=== PATIENT | female | born 1935 | race Caucasian/White ===

== ENCOUNTER 2022-03-31 23:18 | Inpatient (IN) | payer BC ==
[~2022-03-31] VITALS: Ht 154.9 cm; Wt 65.8 kg
--- NOTE | 2022-03-31 23:30 | NUR ---
COLT 89 FROM [facility] [place] C/O L HIP PAIN S/P TRIP & GLF. 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 -LOC. -KO. PT ON BLOOD THINNERS. EXTERNAL ROTATION AND SHORTENING NOTED TO LLE. A/OX 4. TOLERATING R/A WELL WITH NO RESP DISTRESS. RR EVEN AND NON LABORED. CONNECTED PT TO POX AND MONITOR. SAFETY MEASURES IN PLACE.
--- NOTE | 2022-03-31 23:48 | NUR ---
MAKE UP WORKER AT PT'S BEDSIDE
[2022-04-01] MEDS ORDERED: MORPHINE SULFATE INJ 2 MG/ML DISP.SYRIN IV ONE (00:30)
[2022-04-01] MEDS ORDERED: ONDANSETRON HCL/PF 4 MG/2 ML VIAL IV ONE (00:30)
--- NOTE | 2022-04-01 00:31 | NUR ---
L HAND #20G S/L BLOOD AND COVID ANTIGEN SWAB COLLECTED AND SENT TO LAB
[2022-04-01] MEDS ORDERED: ONDANSETRON HCL/PF 4 MG/2 ML VIAL ONE (00:32)
[2022-04-01] MEDS ORDERED: MORPHINE SULFATE INJ 4 MG/ML DISP.SYRIN ONE ×2 (00:33→02:34)
--- NOTE | 2022-04-01 00:48 | NUR ---
PT REFUSED F/C AT THIS TIME AND VERBALIZED UNDERSTANDING.
[2022-04-01 00:50] LABS: BASOPHILS % (AUTO) 0.5 % (0.0-2.0); EOSINOPHILS % (AUTO) 1.3 % (0.0-6.0); HEMATOCRIT 32 % (33-45); LYMPHOCYTES # (AUTO) 1.3 K/uL (0.8-4.8); LYMPHOCYTES % (AUTO) 14.8 % (20.0-44.0); MEAN CORPUSCULAR HGB CONC 32 g/dl (31.0-36.0); MEAN CORPUSCULAR VOLUME 80 fL (82-100); MONOCYTES # (AUTO) 0.5 K/uL (0.1-1.30); MONOCYTES % (AUTO) 5.9 % (2.0-12.0); NEUTROPHILS # (AUTO) 6.8 K/uL (1.8-8.9); NEUTROPHILS % (AUTO) 77.5 % (43.0-81.0); PLATELET COUNT (AUTO) 306 K/uL (150-450); RED BLOOD CELL COUNT(AUTO) 3.93 MIL/uL (4.0-5.2); WHITE BLOOD COUNT (AUTO) 8.8 K/uL (4.3-11.0)
[2022-04-01 01:01] LABS: CALCIUM, SERUM 8.4 mg/dL (8.5-10.1); CREATININE 1.2 mg/dL (0.6-1.3); POTASSIUM 3.9 mmol/L (3.5-5.1)
--- NOTE | 2022-04-01 02:31 | NUR ---
REPORT GIVEN TO RENU Rousseau RN FOR ROBYN
[2022-04-01] MEDS: MORPHINE SULFATE INJ 4 MG/ML DISP.SYRIN IV PRN ×2 (02:39→07:43)
[2022-04-01] MEDS ORDERED: Z GUARD REMEDY 4 OZ OINT TP PRN (03:00)
--- NOTE | 2022-04-01 03:00 | NUR ---
MS RN ADMITTING NOTE PATIENT WAS ADMITTED AT THE UNIT FROM ER. SHE WAS TRANSPORTED ON THE GURNEY. UPON ADMISSION, VITAL SIGNS WERE TAKEN AND BEING DOCUMENTED BY MARV VIZCAINO. PATIENT IS ON 2 LPM OXYGEN, O2 SAT IS 98%. NO S/S OF SOB OR DISTRESS. SHE IS ALERT AND ORIENTED, AO X 4. PATIENT WAS INTRODUCED WITH THE SURROUNDINGS AND ON HOW TO USE THE CALL LIGHT. IV ACCESS IS AT HER LEFT HAND, #20G, PATENT AND INTACT. SAFETY MEASURES ARE IN PLACE: BED IN LOWEST AND LOCKED POSITION; SIDE RAILS UP X 2; CALL LIGHT IS WITHIN REACH. WILL MONITOR PATIENT THROUGH THE SHIFT.
--- NOTE | 2022-04-01 03:05 | NUR ---
PT TRANSRERRED TO 3W 321-1 VIA ACLS PROTOCOL. VSS. ALL BELONGINGS WITH PT.
[2022-04-01] MEDS ORDERED: MORPHINE SULFATE INJ 4 MG/ML DISP.SYRIN IV PRN (03:30)
[2022-04-01] MEDS: ONDANSETRON HCL/PF 4 MG/2 ML VIAL IVP PRN ×3 (03:38→14:33)
[2022-04-01] MEDS: IV NS 0.9% 1,000 ML IV PRN (03:47)
[2022-04-01] MEDS: ENOXAPARIN SODIUM 30 MG/0.3 ML DISP.SYRIN SQ SCH ×3 (04:00→21:27)
--- NOTE | 2022-04-01 04:49 | NUR ---
MS RN NOTE PATIENT IS ADMITTED DUE TO LEFT HIP FRACTURE. PATIENT IS ON NPO PER MD ORDER. PATIENT ALSO HAS BRUISING ON HER FOREARM AND BACK OF HANDS BILATERAL. LOVENOX 30 MG SUBCUTANEOUS INJECTION MEDICATION WAS HELD.
--- NOTE | 2022-04-01 05:00 | NUR ---
MS RN NOTE PATIENT HAS BEEN FEELING ON AND OFF N/V. THE EMESIS COLOR IS LIGHT PURPLE COLOR. PATIENT STATED THAT HE ATE SOME STRAWBERRIES LAST NIGHT; AND SHE ALSO HAD HISTORY OF ESOPHAGUS EROSION RECENTLY. CHARGE NURSE NOTIFIED. WILL CLOSELY MONITOR PATIENT'S CBC LAB, ESPECIALLY H/H FOR S/S OF ACTIVE BLEEDING.
--- NOTE | 2022-04-01 05:00 | NUR ---
MS RN NOTE RECEIVED LAB COURIER VITO ORDER, THE LOVENOX NEED TO BE GIVEN TO PREVENT DVT.MEDICATION GIVEN TO THE PT PER MD ORDER.
--- NOTE | 2022-04-01 06:56 | NUR ---
MS RN CLOSING NOTE PATIENT IS SLEEPING IN BED. PATIENT IS ON 2 LPM OXYGEN, O2 SAT IS 98%. NO S/S OF SOB OR DISTRESS. IV ACCESS IS AT HER LEFT HAND, #20G, PATENT AND INTACT. PATIENT REFUSED TO HAVE VAUGHAN CATHETER INSERTED; EDUCATED THE PATIENT, PATIENT SAID THAT GAVE HER SOME TIME TO THINK ABOUT IT. SAFETY MEASURES ARE IN PLACE: BED IN LOWEST AND LOCKED POSITION; SIDE RAILS UP X 2; CALL LIGHT IS WITHIN REACH. WILL ENDORSE NEXT SHIFT NURSE FOR CONTINUE PATIENT CARE.
[2022-04-01 07:00] VITALS: BP 120/71
--- NOTE | 2022-04-01 08:14 | NUR ---
RN OPENING NOTE- PATIENT AWAKE, IN PAIN, PATIENT IS ON 2 LPM OXYGEN, O2 SAT IS 98%. NO S/S OF SOB OR DISTRESS. IV ACCESS LEFT HAND, #20G, PATENT AND INTACT. PT USED BEDPAN, PATIENT REFUSED TO HAVE VAUGHAN CATHETER INSERTED; EDUCATED THE PATIENT, SAFETY MEASURES ARE IN PLACE: BED IN LOWEST AND LOCKED POSITION; SIDE RAILS UP X 2; CALL LIGHT IS WITHIN REACH. MONITOR / ASSIST
[2022-04-01] MEDS ORDERED: [UNRECOGNIZED DRUG - CODE] PO (08:44)
[2022-04-01] MEDS ORDERED: LEFL10TA16 PO (08:44)
[2022-04-01] MEDS ORDERED: MONT10TA22 PO (08:44)
[2022-04-01] MEDS ORDERED: CLOP75TA15 PO (08:44)
[2022-04-01] MEDS ORDERED: LEVO175T7 PO (08:44)
[2022-04-01] MEDS ORDERED: LOSA25TA27 PO (08:44)
[2022-04-01] MEDS ORDERED: ROSU20TA32 PO (08:44)
[2022-04-01] MEDS ORDERED: METO25TA4 PO (08:44)
[2022-04-01] MEDS ORDERED: APIX5TAB PO (08:44)
[2022-04-01] MEDS ORDERED: PANTOPRAZOLE 40 MG VIAL IV SCH (09:00)
[2022-04-01] MEDS: HYDROCODONE/APAP 10/325MG TABLET PO PRN (11:22)
--- NOTE | 2022-04-01 12:51 | NUR ---
RN NOTE- DR NEGRON CHANGED PAIN RX TO DILAUDIS 2 MG Q3H PRN PLUS NOCO [address] JEFERSON MAYFIELD SAW PT AND IS GOING TO DO SURGERY TOMORROW MORNING. NPO AFTER MN, TYPE AND SCREEN ORDERED
[2022-04-01] MEDS: HYDROMORPHONE INJ 2 MG/ML DISP.SYRIN IV PRN ×2 (13:43→21:56)
--- NOTE | 2022-04-01 18:35 | NUR ---
RN CLOSING NOTE- PATIENT ASLEEP, COMFORTABLE, DILAUDID PROVIDING ADEQUATE RELIEF. PATIENT IS ON 2 LPM OXYGEN, O2 SAT IS 98%. NO S/S OF SOB OR DISTRESS. IV ACCESS LEFT HAND, #20G, PATENT AND INTACT. PT USED BEDPAN, PATIENT REFUSED TO HAVE VAUGHAN CATHETER INSERTED; EDUCATED THE PATIENT, FOR LT ORIF IN AM. NPO AFTER MN, CONSENTS SIGNED, SAFETY MEASURES ARE IN PLACE: BED IN LOWEST AND LOCKED POSITION; SIDE RAILS UP X 2; CALL LIGHT IS WITHIN REACH. MONITOR / ASSIST
--- NOTE | 2022-04-01 19:40 | NUR ---
MS RN OPENING NOTE PATIENT AWAKE IN BED, ALERT/ORIENTED X 4, PT ABLE TO MAKE NEEDS KNOWN. PATIENT STABLE ON RA, NO S/S OF DISTRESS OR SOB NOTED, BREATHING EVEN AND UNLABORED. ASSISTED PATIENT WITH USING BEDPAN, PER DAYSHIFT RN PATIENT REFUSED TO HAVE VAUGHAN CATH PLACED, PATIENT STATES SHE WOULD LIKE IT PLACED DURING SURGERY. IV ACCESS ON LEFT HAND #20G INTACT AND INFUSING NS @ 75 ML/HR. SAFETY MEASURES IN PLACE: CALL LIGHT WITHIN REACH, SIDE RAILS UP X 2, BED LOCKED IN LOWEST POSITION, BED ALARM ON. WILL CONTINUE TO MONITOR PATIENT
[2022-04-01 20:00] VITALS: BP 118/48
--- NOTE | 2022-04-01 21:05 | NUR ---
MS RN NOTE PATIENT C/O NAUSEA BUT ZOFRAN PRN HAS NOT BEEN ALLEVIATING NAUSEA. CONTACT TELEMETRY NURSE MD ALYSIA PADRON WITH ORDER FOR REGLAN 10 MG IVP Q6H PRN. ORDER VERIFIED AND CARRIED OUT
--- NOTE | 2022-04-01 21:27 | NUR ---
MS RN NOTE PATIENT GOING FOR SURGERY TOMORROW. MARIE LANCASTER
[2022-04-01] MEDS: METOCLOPRAMIDE HCL 10 MG/2 ML VIAL IV PRN (21:29)
[2022-04-02] VITALS (8 sets, daily range): BP systolic 99–132; BP diastolic 41–62
[2022-04-02] MEDS: IV NS 0.9% 1,000 ML IV PRN (04:36)
[2022-04-02 06:51] LABS: BASOPHILS % (AUTO) 0.5 % (0.0-2.0); EOSINOPHILS % (AUTO) 2.8 % (0.0-6.0); HEMATOCRIT 29 % (33-45); HEMOGLOBIN 9.2 g/dL (11.5-14.8); LYMPHOCYTES % (AUTO) 13.4 % (20.0-44.0); MEAN CORPUSCULAR HGB CONC 32 g/dl (31.0-36.0); MEAN CORPUSCULAR VOLUME 80 fL (82-100); MONOCYTES # (AUTO) 0.6 K/uL (0.1-1.30); MONOCYTES % (AUTO) 7.9 % (2.0-12.0); NEUTROPHILS # (AUTO) 5.8 K/uL (1.8-8.9); NEUTROPHILS % (AUTO) 75.4 % (43.0-81.0); PLATELET COUNT (AUTO) 253 K/uL (150-450); RED BLOOD CELL COUNT(AUTO) 3.58 MIL/uL (4.0-5.2); WHITE BLOOD COUNT (AUTO) 7.7 K/uL (4.3-11.0)
[2022-04-02] MEDS: HYDROMORPHONE INJ 2 MG/ML DISP.SYRIN IV PRN (06:56)
--- NOTE | 2022-04-02 07:07 | NUR ---
MS RN OPENING NOTES RECEIVED PATIENT SLEEPING IN BED, A/Ox4, ABLE TO MAKE NEEDS KNOWN. PATIENT ON ROOM AIR NO S/S OF RESPIRATORY DISTRESS OR DISCOMFORT. PATIENT HAS IV ACCESS L HAND #20G RUNNING NS @75 ML/HR. INTACT AND PATENT. PATIENT IS CONTINENT HAS PUREWICK. ON BEDREST. SKIN ISSUES: BRUISING BILATERAL FOREARMS. NPO AT THIS TIME PENDING SURGERY. SAFETY MEASURES IN PLACE: BED LOCKED AND IN LOWEST POSITION, SIDE RAILS UPx2, CALL LIGHT WITHIN REACH, HOB ELEVATED. WILL CONTINUE TO MONITOR.
[2022-04-02 07:17] LABS: CALCIUM, SERUM 7.8 mg/dL (8.5-10.1); CREATININE 0.9 mg/dL (0.6-1.3); MAGNESIUM 2.2 mg/dL (1.8-2.4); PHOSPHORUS 2.8 mg/dL (2.5-4.9); POTASSIUM 4.4 mmol/L (3.5-5.1)
[2022-04-02 07:19] LABS: THYROID STIMULATING HORMONE 0.606 uIU/mL (0.358-3.74)
--- NOTE | 2022-04-02 07:23 | NUR ---
MS RN CLOSING NOTE PATIENT AWAKE IN BED, ALERT/ORIENTED X 4, PT ABLE TO MAKE NEEDS KNOWN. PATIENT STABLE ON RA, NO S/S OF DISTRESS OR SOB NOTED, BREATHING EVEN AND UNLABORED. IV ACCESS ON LEFT HAND #20G INTACT AND INFUSING NS @ 75 ML/HR. MEDICATIONS GIVEN ORDERED, PT NEEDS MET THROUGHOUT SHIFT. PUREWICK PLACED ON PATIENT. PATIENT KEPT NPO SINCE MIDNIGHT FOR LEFT HIP ORIF TODAY, CONSENTS SIGNED, SURGERY CHECKLIST COMPLETED. SAFETY MEASURES IN PLACE: CALL LIGHT WITHIN REACH, SIDE RAILS UP X 2, BED LOCKED IN LOWEST POSITION, BED ALARM ON. ENDORSED TO DAYSHIFT RN FOR CONTINUITY OF CARE
[2022-04-02] MEDS: METOCLOPRAMIDE HCL 10 MG/2 ML VIAL IV PRN (08:37)
[2022-04-02] MEDS: LEFLUNOMIDE 10 MG TABLET PO SCH (08:38)
[2022-04-02] MEDS: MONTELUKAST SODIUM (10MG) 10 MG TABLET PO SCH (08:38)
[2022-04-02] MEDS: LEVOTHYROXINE SODIUM 175 MCG TABLET PO SCH (08:38)
[2022-04-02] MEDS: PANTOPRAZOLE 40 MG TABLET.DR PO SCH (08:40)
[2022-04-02] MEDS: METOPROLOL SUCCINATE 25 MG TAB.SR.24H PO SCH (08:41)
[2022-04-02] MEDS: LOSARTAN POTASSIUM 25 MG TABLET PO SCH (08:41)
[2022-04-02] MEDS ORDERED: DISOPYRAMIDE PHOSPHATE 100 MG PO SCH (09:00)
--- NOTE | 2022-04-02 09:20 | NUR ---
RN NOTES PATIENT PATIENT COMPLAINED OF NAUSEA, PRN REGLAN ADMINISTERED. PATIENT WAS THEN PICKED UP FOR SURGERY BY TWO OR RNs. PATIENT TAKEN VIA BED FROM UNIT WITH DAUGHTER. DAUGHTER WAS GIVEN ALL JEWELRY AND GLASSES. PATIENT LEFT IN STABLE CONDITION. WILL AWAIT FOR PATIENT TO RETURN
[2022-04-02] MEDS ORDERED: HYDROMORPHONE INJ 2 MG/ML DISP.SYRIN ONE (09:52)
[2022-04-02] MEDS ORDERED: ROCURONIUM BROMIDE 50 MG/5 ML ONE (09:52)
[2022-04-02] MEDS ORDERED: FAMOTIDINE/PF INJ 20 MG/2 ML VIAL IV ONE (09:53)
[2022-04-02] MEDS ORDERED: BUPIVACAINE 0.5 % PF 150 MG/30 ML VIAL ONE (09:56)
--- NOTE | 2022-04-02 12:20 | NUR ---
RN NOTES PATIENT RETURNED FORM OR ACCOMPANIED BY 2 RNs. PATIENT ON 3L OF O2, TOLERATING WELL. PATIENT CURRENTLY DROWSY BUT COMPLIES WITH VERBAL COMMANDS. PATIENT V/S TAKEN, STABLE. PATIENT RECONNECTED TO IV FLUIDS. WILL CONTINUE TO MONITOR.
[2022-04-02 13:05] LABS: HEMOGLOBIN 8.5 g/dL (11.5-14.8)
[2022-04-02] MEDS: ANCEF 1 GM/50 ML D5W IV SCH ×2 (17:28)
[2022-04-02] MEDS: HYDROCODONE/APAP 10/325MG TABLET PO PRN (17:28)
[2022-04-02] MEDS: ATORVASTATIN 40 MG TABLET PO SCH (17:28)
--- NOTE | 2022-04-02 18:00 | NUR ---
RN NOTES PATIENT COMPLAINED OF PAIN OF L HIP. PRN NARCO 10-325 MG ADMINISTERED. WILL CONTINUE TO MONITOR PATIENT.
--- NOTE | 2022-04-02 18:45 | NUR ---
MS RN CLOSING NOTES PATIENT SLEEPING IN BED, A/Ox4, ABLE TO MAKE NEEDS KNOWN. PATIENT STABLE ON ROOM AIR NO S/S OF RESPIRATORY DISTRESS OR DISCOMFORT. PATIENT HAS IV ACCESS L HAND #20G RUNNING NS @75 ML/HR. INTACT AND PATENT. PATIENT IS CONTINENT HAS VAUGHAN CATHETER. ON BEDREST. SKIN ISSUES: BRUISING BILATERAL FOREARMS, L HIP SX SITE. SAFETY MEASURES MAINTAINED: BED LOCKED AND IN LOWEST POSITION, SIDE RAILS UPx2, CALL LIGHT WITHIN REACH, HOB ELEVATED. WILL ENDORSE TO NEXT SHIFT ANY ROBYN.
--- NOTE | 2022-04-02 19:32 | NUR ---
MS RN OPENING NOTES; RECEIVED PATIENT IN BED AA/Ox4, ABLE TO MAKE NEEDS KNOWN. PATIENT STABLE ON ROOM AIR NO SIGN SOB/DISTRESS NOTED,NO COMPLAIN OF PAIN/DISCOMFORT AT THIS TIME, IV ACCESS L HAND #20G RUNNING NS @75 ML/HR. INTACT AND PATENT.S/P L HIP SURGERY,NO SIGN OF BLEEDING NOTED,SAFETY MEASURES MAINTAINED: BED LOCKED AND IN LOWEST POSITION, SIDE RAILS UPx2, CALL LIGHT WITHIN REACH,WILL CONTINUE TO MONITOR.
[2022-04-02] MEDS: ENOXAPARIN SODIUM 30 MG/0.3 ML DISP.SYRIN SQ SCH (21:10)
[2022-04-03] VITALS (7 sets, daily range): BP systolic 120–165; BP diastolic 51–73
--- NOTE | 2022-04-03 02:00 | NUR ---
RN NOTES; PT PUT THE CALL ON,I ANSWERED IT AND ASKED HER WHAT SHE WANT,SHE SAID I NEED TO MAKE NUMBER 2.I TOLD HER,DO YOU LIKE TO USED THE BEDPAN,PT SAID OK,TWO GETTER FILLER (CHANEL MORALES) AND I,WAS TRYING TO HELP THE PT,BUT THE PT SAID,YOU GUYS ARE DAMN DON'T KNOW WHAT TO DO,PT SAID NEED TO TALKED TO THE CHARGE NURSE.PT ALSO CALLED 911,AND THE 911 CALL BACK [place] AND I TALKED TO THEM,911 SAID,PT SAYING NO ONE HELPING HER,911 SAID CAN ANYONE HELP HER,I TOLD THE 911 SHE BEEN HELP ALREADY.I TALKED TO THE PT IF SHE WANT MEDICATION TO MAKE HER BM.PT SAID OK,SO I TEXTED SYED,ALYSIA PADRON,WITH A NEW ORDER COLACE 100MG PO BID.I TALKED TO THE PT ABOUT THE NEW ORDER,SHE SAID OK. AND SHE ASKED PAIN MED.I GIVE NORCO 5-325MG,ATER 30MIN,PT SLEEPING.I TALKED TO A PT DAUGHTER RADHA,ABOUT PT COMPLAINED,I TOLD RADHA,WE PUT THE BEDPAN ALREADY AND WE TOLD YOUR MOM TO CALL US WHEN SHE DONE.SO WE CAN CLEAN HER UP.
[2022-04-03] MEDS: ANCEF 1 GM/50 ML D5W IV SCH ×2 (02:24)
[2022-04-03] MEDS: HYDROCODONE/APAP 10/325MG TABLET PO PRN (02:29)
[2022-04-03] MEDS ORDERED: LORAZEPAM INJ 2 MG/ML VIAL IVP ONE (03:30)
[2022-04-03 06:05] LABS: CALCIUM, SERUM 7.2 mg/dL (8.5-10.1); CREATININE 0.9 mg/dL (0.6-1.3); MAGNESIUM 2.1 mg/dL (1.8-2.4); PHOSPHORUS 2.5 mg/dL (2.5-4.9); POTASSIUM 4.5 mmol/L (3.5-5.1)
--- NOTE | 2022-04-03 06:30 | NUR ---
MS RN CLOSING NOTES;321 PATIENT IN BED SLEEPING BUT EASY TO AROUSED,A/Ox4, ABLE TO MAKE NEEDS KNOWN. PATIENT STABLE ON ROOM AIR NO SIGN SOB/DISTRESS NOTED,PT COMPLAINED OF PAIN LEFT HIP DURING SHIFT NORCO 5-325MG WAS GIVEN, IV ACCESS L HAND #20G RUNNING NS @75 ML/HR. INTACT AND PATENT.S/P L HIP SURGERY,NO SIGN OF BLEEDING NOTED,SAFETY MEASURES MAINTAINED: BED LOCKED AND IN LOWEST POSITION, SIDE RAILS UPx2, CALL LIGHT WITHIN REACH,WILL ENDORSED TO NEXT SHIFT.
--- NOTE | 2022-04-03 07:30 | NUR ---
RN notes Received patient in bed. She is resting without active complaint. Left hip wound is intact. Noted some oozing over the dressing, neurovascular is intact with good pulse and circulation. Left forearm IV site is dry and intact. Will continue monitoring and care. Addendum: 04/03/22 at 0757 by BERNARDINO SHOEMAKER RN Patient is A/O x 4. Call corley is placed within reach. Bed is locked and placed in the lowest position. All safety measures have been implemented.
[2022-04-03] MEDS: LEVOTHYROXINE SODIUM 175 MCG TABLET PO SCH (08:44)
[2022-04-03] MEDS: LEFLUNOMIDE 10 MG TABLET PO SCH (08:44)
[2022-04-03] MEDS: METOPROLOL SUCCINATE 25 MG TAB.SR.24H PO SCH (08:45)
[2022-04-03] MEDS: LOSARTAN POTASSIUM 25 MG TABLET PO SCH (08:45)
[2022-04-03] MEDS: MONTELUKAST SODIUM (10MG) 10 MG TABLET PO SCH (08:45)
[2022-04-03] MEDS: ACETAMINOPHEN 325 MG TABLET PO PRN ×2 (08:47→17:49)
[2022-04-03] MEDS: PANTOPRAZOLE 40 MG TABLET.DR PO SCH (08:48)
[2022-04-03] MEDS: DOCUSATE SODIUM 100 MG CAPSULE PO SCH ×2 (08:48→17:49)
[2022-04-03 11:36] LABS: BASOPHILS % (AUTO) 0.3 % (0.0-2.0); EOSINOPHILS % (AUTO) 1.9 % (0.0-6.0); HEMATOCRIT 22 % (33-45); LYMPHOCYTES # (AUTO) 0.7 K/uL (0.8-4.8); LYMPHOCYTES % (AUTO) 10.5 % (20.0-44.0); MEAN CORPUSCULAR HGB CONC 32 g/dl (31.0-36.0); MEAN CORPUSCULAR VOLUME 80 fL (82-100); MONOCYTES # (AUTO) 0.4 K/uL (0.1-1.30); MONOCYTES % (AUTO) 5.9 % (2.0-12.0); NEUTROPHILS # (AUTO) 5.3 K/uL (1.8-8.9); NEUTROPHILS % (AUTO) 81.4 % (43.0-81.0); PLATELET COUNT (AUTO) 247 K/uL (150-450); RED BLOOD CELL COUNT(AUTO) 2.73 MIL/uL (4.0-5.2); WHITE BLOOD COUNT (AUTO) 6.5 K/uL (4.3-11.0)
--- NOTE | 2022-04-03 13:00 | NUR ---
RN notes Hospitalist Digna visited patient at bedside and ordered one unit of blood. Request for blood was sent.
--- NOTE | 2022-04-03 16:30 | NUR ---
RN notes Incentive spirometry machine is given to machine with instructions given. Patient is able to return good demonstration of use.
[2022-04-03] MEDS: ATORVASTATIN 40 MG TABLET PO SCH (17:49)
[2022-04-03] MEDS: DISOPYRAMIDE PHOSPHATE 100 MG PO SCH (17:50)
--- NOTE | 2022-04-03 18:30 | NUR ---
RN notes Received an note from lab that blood is ready. Informed charge nurse, who suggested endorsing PM nurse to start blood transfusion for continuity.
--- NOTE | 2022-04-03 18:55 | NUR ---
RN notes Patient is resting in bed without active complaint. Left hip wound is intact with old oozing noted(no increment in oozing). Ice packs and tylenol have been given throughout the day for pain control, patient stated that pain is around 0-1. IV site over left hand is dry and intact, with NS 75mL/hr running. Call corley is placed within reach. Bed is locked and placed in the lowest position. All safety measures have been implemented. Will endorse PM nurse to continue monitoring and care.
--- NOTE | 2022-04-03 19:30 | NUR ---
MS RN OPENING NOTE RECEIVED PT AWAKE IN BED. A/O X4 AND ABLE TO MAKE NEEDS KNOWN. PT STABLE ON ROOM AIR. NO SOB OR S/S OF RESPIRATORY DISTRESS. BREATHING EVEN AND UNLABORED. IV ACCESS L HAND 20G, INTACT AND PATENT, RUNNING NS@75 ML/HR. WITH VAUGHAN CATH IN PLACE DRAINING URINE BY GRAVITY. SAFETY PRECAUTIONS IN PLACE. BED IN LOWEST LOCKED POSITION, HOB ELEVATED, SIDE RAILS UP X2, AND CALL LIGHT AND TABLE WITHIN REACH. ALL NEEDS MET AT THIS TIME.
[2022-04-03] MEDS: ENOXAPARIN SODIUM 30 MG/0.3 ML DISP.SYRIN SQ SCH (21:56)
[2022-04-04 00:35] VITALS: BP 139/65
[2022-04-04] MEDS: HYDROMORPHONE INJ 2 MG/ML DISP.SYRIN IV PRN ×4 (01:05→16:08)
--- NOTE | 2022-04-04 01:05 | NUR ---
RN NOTE PT COMPLAINED OF PAIN 9/10 OF L HIP. ADMINISTERED DILAUDID 2 MG FOR PAIN ORDERED. MADE COMFORTABLE IN BED. ALL NEEDS MET AT THIS TIME.
[2022-04-04 06:27] LABS: CALCIUM, SERUM 7.5 mg/dL (8.5-10.1); CREATININE 0.9 mg/dL (0.6-1.3); MAGNESIUM 2.2 mg/dL (1.8-2.4); PHOSPHORUS 2.4 mg/dL (2.5-4.9); POTASSIUM 4.2 mmol/L (3.5-5.1)
--- NOTE | 2022-04-04 06:37 | NUR ---
MS RN CLOSING NOTE PT AWAKE IN BED. A/O X4 AND ABLE TO MAKE NEEDS KNOWN. PT STABLE ON ROOM AIR. NO SOB OR S/S OF RESPIRATORY DISTRESS. BREATHING EVEN AND UNLABORED. IV ACCESS L HAND 20G, INTACT AND PATENT, RUNNING NS@75 ML/HR. WITH VAUGHAN CATH IN PLACE DRAINING URINE BY GRAVITY. KEPT CLEAN AND DRY. ALL DUE MEDS GIVEN ORDERED. SAFETY PRECAUTIONS IN PLACE AT ALL TIMES. BED IN LOWEST LOCKED POSITION, HOB ELEVATED, SIDE RAILS UP X2, AND CALL LIGHT AND TABLE WITHIN REACH. ALL NEEDS MET AT THIS TIME AND WILL ENDORSE TO ONCOMING NURSE FOR ROBYN.
--- NOTE | 2022-04-04 07:46 | NUR ---
MS RN OPENING NOTE Patient in bed, awake. A/O x 4, able to make needs known. On room air, breathing evenly and unlabored. No SOB or s/s of distress noted. IV access on Left hand #22 infusing NS at 75 ml/hr. Evans catheter in place draining to a yellow colored urine. Left hip surgical dressing intact. Safety precautions in place: bed in low, locked position; siderails up x 2; call light within reach. Will continue to monitor.
[2022-04-04 08:00] VITALS: BP 141/68
[2022-04-04] MEDS: DISOPYRAMIDE PHOSPHATE 100 MG PO SCH ×2 (08:25→17:19)
[2022-04-04] MEDS: LEVOTHYROXINE SODIUM 175 MCG TABLET PO SCH (08:26)
[2022-04-04] MEDS: LEFLUNOMIDE 10 MG TABLET PO SCH (08:26)
[2022-04-04] MEDS: DOCUSATE SODIUM 100 MG CAPSULE PO SCH ×2 (08:27→17:19)
[2022-04-04] MEDS: PANTOPRAZOLE 40 MG TABLET.DR PO SCH (08:27)
[2022-04-04] MEDS: MONTELUKAST SODIUM (10MG) 10 MG TABLET PO SCH (08:28)
[2022-04-04] MEDS: METOPROLOL SUCCINATE 25 MG TAB.SR.24H PO SCH (08:30)
[2022-04-04] MEDS: LOSARTAN POTASSIUM 25 MG TABLET PO SCH (08:31)
--- NOTE | 2022-04-04 09:34 | NUR ---
RN NOTE Patient complained of pain on Left hip, 8/10 on pain scale. PRN Dilaudid 2 mg given. Will continue to monitor.
[2022-04-04] MEDS ORDERED: K PHOS NEUTRAL 250 MG TABLET PO ONE (10:00)
[2022-04-04] MEDS: IV NS 0.9% 1,000 ML IV PRN (10:46)
[2022-04-04] MEDS: ONDANSETRON HCL/PF 4 MG/2 ML VIAL IVP PRN (12:40)
--- NOTE | 2022-04-04 12:40 | NUR ---
RN NOTE Patient complained of nausea with 1 episode of vomiting. PRN Zofran 4 mg given. Will continue to monitor.
[2022-04-04 16:00] VITALS: BP 153/79
--- NOTE | 2022-04-04 16:20 | NUR ---
RN NOTES Patient requested for pain medication at 1600H, prepared the medication right away. Upon administering, patient changed her mind and wanted to take it later. Medication wasted and witnessed by Charleen MORALES
[2022-04-04] MEDS: ATORVASTATIN 40 MG TABLET PO SCH (17:19)
[2022-04-04 18:28] LABS: BASOPHILS # (AUTO) 0.1 K/uL (0.0-0.2); EOSINOPHILS % (AUTO) 6.2 % (0.0-6.0); HEMATOCRIT 28 % (33-45); LYMPHOCYTES # (AUTO) 1.4 K/uL (0.8-4.8); LYMPHOCYTES % (AUTO) 15.3 % (20.0-44.0); MEAN CORPUSCULAR HGB CONC 32 g/dl (31.0-36.0); MEAN CORPUSCULAR VOLUME 82 fL (82-100); MONOCYTES # (AUTO) 0.7 K/uL (0.1-1.30); MONOCYTES % (AUTO) 7.4 % (2.0-12.0); NEUTROPHILS # (AUTO) 6.4 K/uL (1.8-8.9); NEUTROPHILS % (AUTO) 70.1 % (43.0-81.0); PLATELET COUNT (AUTO) 269 K/uL (150-450); WHITE BLOOD COUNT (AUTO) 9.2 K/uL (4.3-11.0)
--- NOTE | 2022-04-04 19:27 | NUR ---
MS RN CLOSING NOTE Patient in bed, awake. A/O x 4, able to make needs known. On room air, breathing evenly and unlabored. No SOB or s/s of distress noted. IV access on Left hand #22 infusing NS at 75 ml/hr. Evans catheter in place draining to a yellow colored urine. Left hip surgical dressing intact. All needs attended to. Due meds given. Safety precautions in place: bed in low, locked position; siderails up x 2; call light within reach. Will endorse to hourly shift nurse for ROBYN.
[2022-04-04 20:00] VITALS: BP 163/94
[2022-04-04] MEDS: ENOXAPARIN SODIUM 30 MG/0.3 ML DISP.SYRIN SQ SCH (21:30)
[2022-04-05 03:35] LABS: BASOPHILS % (MANUAL) 0 % (0.0-2.0); EOSINOPHILS % (MANUAL) 7 % (0-4); LYMPHOCYTES % (MANUAL) 21 % (16-48); MONOCYTES % (MANUAL) 4 % (0-11.0); NEUTROPHILS % (MANUAL) 68 (42-76)
--- NOTE | 2022-04-05 04:56 | NUR ---
Closing Notes: alert and orientated X4 requested Pulmacort last night nonformulary went to explain to the patient and she was sleeping soundly no SOB noted patient is easily angered [place] call light not answered as fast as she'd like or is IV needing to bestrated d/t present one is leaking. Daughter stated she'd like to have her go to [facility] explained t her to let the MD be aware left hip dressing CDI Left foot warm with a PPP
[2022-04-05 05:36] LABS: BASOPHILS # (AUTO) 0.1 K/uL (0.0-0.2); BASOPHILS % (AUTO) 0.8 % (0.0-2.0); EOSINOPHILS % (AUTO) 6.7 % (0.0-6.0); HEMATOCRIT 27 % (33-45); HEMOGLOBIN 8.7 g/dL (11.5-14.8); LYMPHOCYTES # (AUTO) 1.2 K/uL (0.8-4.8); LYMPHOCYTES % (AUTO) 18.4 % (20.0-44.0); MEAN CORPUSCULAR HGB CONC 32 g/dl (31.0-36.0); MEAN CORPUSCULAR VOLUME 81 fL (82-100); MONOCYTES # (AUTO) 0.6 K/uL (0.1-1.30); MONOCYTES % (AUTO) 8.4 % (2.0-12.0); NEUTROPHILS # (AUTO) 4.3 K/uL (1.8-8.9); NEUTROPHILS % (AUTO) 65.7 % (43.0-81.0); PLATELET COUNT (AUTO) 272 K/uL (150-450); RED BLOOD CELL COUNT(AUTO) 3.35 MIL/uL (4.0-5.2); WHITE BLOOD COUNT (AUTO) 6.6 K/uL (4.3-11.0)
[2022-04-05 05:58] LABS: CALCIUM, SERUM 7.5 mg/dL (8.5-10.1); CREATININE 0.9 mg/dL (0.6-1.3); MAGNESIUM 2.1 mg/dL (1.8-2.4); PHOSPHORUS 2.6 mg/dL (2.5-4.9); POTASSIUM 4.1 mmol/L (3.5-5.1)
--- NOTE | 2022-04-05 07:00 | NUR ---
MIDDLE SCHOOL FOOTBALL COACH OPENING NOTES: RECEIVED PT IN BED AWAKE, ALERT AND ORIENTED X 3 WITH EPISODES OF FORGETFULNESS. NO SOB OR CARDIAC DISTRESS NOTED, DENIES PAIN AT THIS TIME. ON ROOM AIR AND TOLERATING WELL. IV ACCESS ON RIGHT HAND GAUGE 22 PATENT INTACT AND INFUSING NS 75ML/HR. SAFETY MEASURES MAINTAINED, BED LOCKED AND IN LOWEST POSITION SIDE RAILS UP X 2. CALL LIGHT IN EASY REACH FOR HELP. WILL MONITOR PT ACCORDINGLY.
[2022-04-05] MEDS: LEVOTHYROXINE SODIUM 175 MCG TABLET PO SCH (07:47)
[2022-04-05 08:00] VITALS: BP 159/89
[2022-04-05] MEDS: PANTOPRAZOLE 40 MG TABLET.DR PO SCH (09:01)
[2022-04-05] MEDS: DOCUSATE SODIUM 100 MG CAPSULE PO SCH ×2 (09:01→16:46)
[2022-04-05] MEDS: MONTELUKAST SODIUM (10MG) 10 MG TABLET PO SCH (09:01)
[2022-04-05] MEDS: METOPROLOL SUCCINATE 25 MG TAB.SR.24H PO SCH (09:02)
[2022-04-05] MEDS: LOSARTAN POTASSIUM 25 MG TABLET PO SCH (09:02)
[2022-04-05] MEDS: LEFLUNOMIDE 10 MG TABLET PO SCH (09:09)
[2022-04-05] MEDS: DISOPYRAMIDE PHOSPHATE 100 MG PO SCH ×2 (09:09→16:46)
[2022-04-05] MEDS: HYDROCODONE/APAP 10/325MG TABLET PO PRN (10:11)
[2022-04-05] MEDS ORDERED: BUDE180A IH (10:36)
[2022-04-05] MEDS ORDERED: LEVA15HF4 IH ×2 (10:36)
[2022-04-05] MEDS ORDERED: ALBUTEROL FS 2.5 MG/3 ML VIAL.NEB NEB PRN ×2 (11:00→17:54)
[2022-04-05] MEDS ORDERED: HYDR-3980 PO (11:24)
[2022-04-05] MEDS ORDERED: ACET-2605 PO (11:24)
[2022-04-05] MEDS ORDERED: DOCU100C36 PO (11:24)
[2022-04-05] MEDS ORDERED: PANT40TA49 PO (11:24)
[2022-04-05] MEDS ORDERED: MAGNESIUM HYDROXIDE 30 ML UDC PO PRN (11:30)
[2022-04-05] MEDS ORDERED: BISACODYL SUPP (10 MG) 10 MG/SUPP.RECT SUPP.RECT RC PRN (11:30)
[2022-04-05] MEDS ORDERED: SENNOSIDES 8.6 MG TABLET PO PRN (11:30)
[2022-04-05] MEDS ORDERED: SENN-175 PO (11:31)
[2022-04-05] MEDS ORDERED: MAGN400O6 PO (11:31)
[2022-04-05] MEDS ORDERED: BISA10SU61 RC (11:31)
[2022-04-05 16:00] VITALS: BP 148/76
[2022-04-05] MEDS ORDERED: BUDESONIDE RESPULE INH 0.5 MG/2 ML AMPUL.NEB NEB SCH (17:00)
[2022-04-05] MEDS: ATORVASTATIN 40 MG TABLET PO SCH (17:25)
--- NOTE | 2022-04-05 19:03 | NUR ---
MS RN CLOSING NOTES: RECEIVED PT IN BED AWAKE, ALERT AND ORIENTED X 3 WITH EPISODES OF FORGETFULNESS. NO SOB OR CARDIAC DISTRESS NOTED, DENIES PAIN AT THIS TIME. ON ROOM AIR AND TOLERATING WELL. IV ACCESS ON RIGHT HAND GAUGE 22 PATENT INTACT AND SL. NOTED WITH SURGICAL DRESSING ON LEFT HIP, PATENT INTACT WITH MINIMAL TINGED OF BLOOD. SAFETY MEASURES MAINTAINED, BED LOCKED AND IN LOWEST POSITION SIDE RAILS UP X 2. CALL LIGHT IN EASY REACH FOR HELP. WILL MONITOR PT ACCORDINGLY.
[2022-04-05 20:00] VITALS: BP 151/79
--- NOTE | 2022-04-05 20:16 | NUR ---
RECEIVED IN BED ASLEEP RESP EVEN AND UNLABORED CALL LIGHT WITHIN HER REACH
[2022-04-05] MEDS: ENOXAPARIN SODIUM 30 MG/0.3 ML DISP.SYRIN SQ SCH ×2 (21:47→21:54)
[2022-04-06] MEDS: ONDANSETRON HCL/PF 4 MG/2 ML VIAL IVP PRN (02:57)
--- NOTE | 2022-04-06 05:18 | NUR ---
closing notes: alert and orientated X4 left hip dressing intact noted top of dressing bloody drainage small amount left foot warm and PPP EXPLAINED TO THE IMPORTAMCE OF MOVING AND CHANGING HER POSITION AND USING THE INCENTIVE SPIROMETER SHE IS COOPERATIVE
[2022-04-06 08:00] VITALS: BP 178/70
--- NOTE | 2022-04-06 08:02 | NUR ---
RN OPENING NOTE PATIENT AWAKE IN BED RESTING AT THE MOMENT A/O X 4. NO S/S OF PAIN NOTED AT THIS TIME. ON ROOM AIR, NO DISTRESS OR SHORTNESS OF BREATH NOTED. IV ACCESS R HAND #22G, INTACT, PATENT AND FLUSHING WELL. PATIENT HAVE VAUGHAN CATHETER IN PLACE AND DRAINING WELL. FALL AND SAFETY MEASURES IN PLACE, BED ALARM ON, BED IN LOW AND LOCK POSITION, CALL LIGHT AND TABLE WITHIN EASY REACH, SIDE RAILS UP X2. WILL CONTINUE TO MONITOR.
[2022-04-06] MEDS: BUDESONIDE RESPULE INH 0.5 MG/2 ML AMPUL.NEB NEB SCH ×2 (08:10→20:29)
[2022-04-06] MEDS: ALBUTEROL FS 2.5 MG/3 ML VIAL.NEB NEB SCH ×4 (08:10→20:29)
[2022-04-06] MEDS: MONTELUKAST SODIUM (10MG) 10 MG TABLET PO SCH ×2 (08:38→21:42)
[2022-04-06] MEDS: LOSARTAN POTASSIUM 25 MG TABLET PO SCH (08:39)
[2022-04-06] MEDS: LEVOTHYROXINE SODIUM 175 MCG TABLET PO SCH (08:40)
[2022-04-06] MEDS: METOPROLOL SUCCINATE 25 MG TAB.SR.24H PO SCH (08:40)
[2022-04-06] MEDS: PANTOPRAZOLE 40 MG TABLET.DR PO SCH (08:40)
[2022-04-06] MEDS: LEFLUNOMIDE 10 MG TABLET PO SCH (08:40)
[2022-04-06] MEDS: DOCUSATE SODIUM 100 MG CAPSULE PO SCH ×2 (08:40→17:41)
[2022-04-06] MEDS: DISOPYRAMIDE PHOSPHATE 100 MG PO SCH ×2 (08:41→17:41)
[2022-04-06] MEDS: HYDROMORPHONE INJ 2 MG/ML DISP.SYRIN IV PRN ×2 (09:45→18:30)
[2022-04-06 16:00] VITALS: BP 96/54
[2022-04-06] MEDS: ATORVASTATIN 40 MG TABLET PO SCH (17:41)
--- NOTE | 2022-04-06 18:55 | NUR ---
RN CLOSING NOTE PATIENT AWAKE IN BED RESTING AT THE MOMENT A/O X 4. NO S/S OF PAIN NOTED AT THIS TIME. ON ROOM AIR, NO DISTRESS OR SHORTNESS OF BREATH NOTED. IV ACCESS R HAND #22G, INTACT, PATENT AND FLUSHING WELL. PATIENT HAVE VAUGHAN CATHETER IN PLACE AND DRAINING WELL, OUTPUT 600ML. SCHEDULE MEDICATIONS ADMINISTERED. WOUND CARE IMPLEMENTED. FALL AND SAFETY MEASURES IN PLACE, BED ALARM ON, BED IN LOW AND LOCK POSITION, CALL LIGHT AND TABLE WITHIN EASY REACH, SIDE RAILS UP X2. WILL ENDORSE TO WIDE AREA NETWORK ENGINEER.
[2022-04-06 20:00] VITALS: BP 124/55
--- NOTE | 2022-04-06 21:40 | NUR ---
RN NOTES - PATIENT COMPLAINS OF ITCHINESS AT BOTH LEGS. SHE FELT THE SAME IN THE MORNING AND WAS GIVEN SINGULAIR SCHEDULED MED ONCE DAILY. INFORMED DR. ALEXANDER. HOLLY TO GIVE ONE MORE DOSE ORDERED. KEPT COMFORTABLE.
[2022-04-06] MEDS: ENOXAPARIN SODIUM 30 MG/0.3 ML DISP.SYRIN SQ SCH (22:00)
--- NOTE | 2022-04-06 22:50 | NUR ---
RN NOTES INCISION SITE AT LEFT HIP NOTED SEROSANGUINEOUS DRAIN FILLING 3/4 OF ABDOMINAL PAD. INFORMED ROBBIE ALEXANDER. ORDERED CBC. Addendum: 04/06/22 at 2320 by CHRIS NUNN RN PATIENT REFUSED ENOXAPARIN INJ SUBQ. EXPLAINED THE BENEFIT AND RISK OF THE MED X3. ALSO INFORMED DR. ALEXANDER. CHARGE NURSE MADE AWARE. WILL CONTINUE TO MONITOR.
[2022-04-06 23:03] LABS: BASOPHILS % (AUTO) 0.7 % (0.0-2.0); EOSINOPHILS % (AUTO) 5.1 % (0.0-6.0); HEMATOCRIT 29 % (33-45); HEMOGLOBIN 9.2 g/dL (11.5-14.8); LYMPHOCYTES # (AUTO) 1.2 K/uL (0.8-4.8); LYMPHOCYTES % (AUTO) 18.3 % (20.0-44.0); MEAN CORPUSCULAR HGB CONC 32 g/dl (31.0-36.0); MEAN CORPUSCULAR VOLUME 82 fL (82-100); MONOCYTES # (AUTO) 0.7 K/uL (0.1-1.30); MONOCYTES % (AUTO) 11.4 % (2.0-12.0); NEUTROPHILS # (AUTO) 4.2 K/uL (1.8-8.9); NEUTROPHILS % (AUTO) 64.5 % (43.0-81.0); PLATELET COUNT (AUTO) 263 K/uL (150-450); RED BLOOD CELL COUNT(AUTO) 3.51 MIL/uL (4.0-5.2); WHITE BLOOD COUNT (AUTO) 6.5 K/uL (4.3-11.0)
--- NOTE | 2022-04-06 23:18 | NUR ---
REINFORCED NEW DRESSING. TOLERATED PROCEDURE WELL. KEPT COMFORTABLE.
[2022-04-07] MEDS: ALBUTEROL FS 2.5 MG/3 ML VIAL.NEB NEB SCH ×5 (01:25→19:45)
--- NOTE | 2022-04-07 06:36 | NUR ---
RN CLOSING NOTE PATIENT AWAKE IN BED RESTING AT THE MOMENT A/O X 4. NO S/S OF PAIN NOTED AT THIS TIME. ON ROOM AIR, NO DISTRESS OR SHORTNESS OF BREATH NOTED. IV ACCESS R HAND #22G, INTACT, PATENT AND FLUSHING WELL. PATIENT HAVE VAUGHAN CATHETER IN PLACE AND DRAINING WELL. FALL AND SAFETY MEASURES IN PLACE, BED ALARM ON, BED IN LOW AND LOCK POSITION, CALL LIGHT AND TABLE WITHIN EASY REACH, SIDE RAILS UP X2. WILL ENDORSE TO NEXT SHIFT RN FOR ROBYN.
--- NOTE | 2022-04-07 07:20 | NUR ---
RN OPENING NOTE RECEIVED PATIENT AWAKE IN BED , VERBALLY RESPONSIVE , A/O X 4. NO C/O OF PAIN AND DISCOMFORT NOTED AT THIS TIME. ON ROOM AIR, NO SOB OR DISTRESS NOTED . IV ACCESS R HAND #22G, INTACT, PATENT AND FLUSHING WELL. PATIENT HAVE VAUGHAN CATHETER IN PLACE AND DRAINING WELL. NOTED WITH LEFT HIP INCISION SOME DRAINAGE AND WITH ORDER FOR WOUND CONSULT , FALL AND SAFETY MEASURES IN PLACE, BED ALARM ON, BED IN LOW AND LOCK POSITION, CALL LIGHT AND TABLE WITHIN EASY REACH, SIDE RAILS UP X2. WILL CONTINUE TO MONITOR. FOR ANY CHANGES .
[2022-04-07] MEDS: BUDESONIDE RESPULE INH 0.5 MG/2 ML AMPUL.NEB NEB SCH ×3 (07:33→19:45)
[2022-04-07] MEDS: LEVOTHYROXINE SODIUM 175 MCG TABLET PO SCH ×2 (07:45→08:41)
[2022-04-07 08:00] VITALS: BP 157/74
[2022-04-07] MEDS: LEFLUNOMIDE 10 MG TABLET PO SCH (08:40)
[2022-04-07] MEDS: DISOPYRAMIDE PHOSPHATE 100 MG PO SCH ×2 (08:40→16:14)
[2022-04-07] MEDS: PANTOPRAZOLE 40 MG TABLET.DR PO SCH (08:41)
[2022-04-07] MEDS: METOPROLOL SUCCINATE 25 MG TAB.SR.24H PO SCH (08:42)
[2022-04-07] MEDS: LOSARTAN POTASSIUM 25 MG TABLET PO SCH (08:42)
[2022-04-07] MEDS: DOCUSATE SODIUM 100 MG CAPSULE PO SCH ×2 (08:58→16:14)
[2022-04-07] MEDS: ONDANSETRON HCL/PF 4 MG/2 ML VIAL IVP PRN ×2 (09:10→19:17)
[2022-04-07] MEDS: HYDROMORPHONE INJ 2 MG/ML DISP.SYRIN IV PRN ×2 (09:18→21:31)
--- NOTE | 2022-04-07 09:19 | NUR ---
WOUND CARE CONSULT: PT PRESENTS WITH SOME SEROUS DRAINAGE FROM LEFT HIP/THIGH INCISION. DEFER TO ORTHO SURGEON. PT ALSO NOTED TO HAVE RASH WITH SOME ITCHING TO BUTTOCKS. RECOMMENDATIONS MADE FOR SKIN PROTECTION AND SKIN CARE. DISCUSSED WITH NURSING STAFF. MD IN AGREEMENT WITH PLAN OF CARE. VAUGHAN CATH NOTED.
[2022-04-07] MEDS ORDERED: HYDROCODONE/APAP 5/325MG TABLET PO PRN (11:00)
[2022-04-07] MEDS: CLOTRIMAZOLE 1% 15 GM TUBE TP SCH ×2 (11:45→17:14)
--- NOTE | 2022-04-07 15:47 | NUR ---
RN NOTES FOLLOWED UP WITH PATIENT REGARDING THE ELIQUIS AND PLAVIX MEDICATION THAT SHE'S GETTING AND SHE SAID TO CALL DR LONDON REYES -ADVERTISING TRAFFIC MANAGER AND CALLED DR JACOB OFFICE AND SPOKE WITH BLADDER CHANGER AND SAID PATIENT IS GETTING PLAVIX OF 75 MG QD AND ELIQUIS 5MG BID , PATIENT IS ALERT AND ORIENTED AND KNOWS ALSO THE MEDICATIONS THAT SHES GETTING . DR PADRON AWARE AND ORDERED , NOTED AND CARRIED OUT
[2022-04-07 16:00] VITALS: BP 146/60
[2022-04-07] MEDS: APIXABAN 5 MG TABLET PO SCH (16:15)
[2022-04-07] MEDS: ATORVASTATIN 40 MG TABLET PO SCH (17:12)
--- NOTE | 2022-04-07 19:17 | NUR ---
RN CLOSING NOTE PATIENT AWAKE IN BED , VERBALLY RESPONSIVE , A/O X 4. C/O OF PAIN AND DISCOMFORT AND DILAUDID GIVEN ORDERED AND WITH HELP , /CO OF NAUSEA AND ZOFRAN IV GIVEN ORDERED AND WITH HELP . ALL DUE MEDS ORDERED GIVEN , ON ROOM AIR, NO SOB OR DISTRESS NOTED . IV ACCESS R HAND #22G, INTACT, PATENT AND FLUSHING WELL. PATIENT HAVE VAUGHAN CATHETER IN PLACE AND DRAINING WELL WITH 800 CC OUTPUT . NOTED WITH LEFT HIP INCISION SOME DRAINAGE AND SEEN BY WOUND NURSE AND SAID SHE WILL REFER TO SURGEON , INSICION SITE WITH SEROUS DRAINAGE AND DRESSING WAS CHANGED . KEPT DRY AND CLEAN , FALL AND SAFETY MEASURES IN PLACE, BED ALARM ON, BED IN LOW AND LOCK POSITION, CALL LIGHT AND TABLE WITHIN EASY REACH, SIDE RAILS UP X2. ENDORSED TO NEXT SHIFT .
--- NOTE | 2022-04-07 19:30 | NUR ---
RN OPENING NOTE PATIENT AWAKE IN BED, PLEASANT. A/O X 4. ON ROOM AIR, NO SOB OR DISTRESS NOTED. IV ACCESS R HAND #22G, INTACT, PATENT AND FLUSHING WELL. PATIENT HAVE VAUGHAN CATHETER IN PLACE AND DRAINING WELL. INCISION SITE CHECKED, NO DRAINAGE NOTED. COMPLAINS OF NAUSEA. OFFERED ICE SHIPS AND SALT CRACKERS. STILL NAUSEOUS. GIVEN ZOFRAN INJ. PRN ORDERED. FALL AND SAFETY MEASURES IN PLACE, BED ALARM ON, BED IN LOW AND LOCK POSITION, CALL LIGHT AND TABLE WITHIN EASY REACH, SIDE RAILS UP X2. WILL CONT TO MONITOR.
[2022-04-07 20:00] VITALS: BP 134/70
--- NOTE | 2022-04-07 21:30 | NUR ---
RN NOTES COMPLAINS OF PAIN AT OPERATIVE SITE (LEFT HIP). RATED PAIN 8/10. GIVEN DILAUDID INJ PRN ORDERED. TOLERATED WELL. WILL CONT TO MONITOR.
[2022-04-08] MEDS: ALBUTEROL FS 2.5 MG/3 ML VIAL.NEB NEB SCH ×4 (00:50→19:30)
--- NOTE | 2022-04-08 06:38 | NUR ---
RN CLOSING NOTE PATIENT ASLEEP IN BED, PLEASANT. A/O X 4. ON ROOM AIR, NO SOB OR DISTRESS NOTED. IV ACCESS R HAND #22G, INTACT, PATENT AND FLUSHING WELL. PATIENT HAVE VAUGHAN CATHETER IN PLACE AND DRAINING WELL. INCISION SITE CHECKED, NO DRAINAGE NOTED. NO COMPKAINS OF PAIN. NO NAUSEA AND VOMITING AT THIS TIME. FALL AND SAFETY MEASURES IN PLACE, BED ALARM ON, BED IN LOW AND LOCK POSITION, CALL LIGHT AND TABLE WITHIN EASY REACH, SIDE RAILS UP X2. WILL ENDORSE TO NEXT SHIFT RN FOR ROBYN.
[2022-04-08 07:00] VITALS: BP 147/68
[2022-04-08] MEDS: BUDESONIDE RESPULE INH 0.5 MG/2 ML AMPUL.NEB NEB SCH ×2 (07:30→19:30)
--- NOTE | 2022-04-08 07:35 | NUR ---
RN OPENING NOTE RECEIVED PATIENT AWAKE IN BED , A/O X 4. ON ROOM AIR, NO SOB OR DISTRESS NOTED, BREATHING EVEN AND NON LABORED. NO C/O OF PAIN AND DISCOMFORT NOTED AT THIS TIME. IV ACCESS R HAND #22G, INTACT, PATENT AND FLUSHING WELL. PATIENT HAVE VAUGHAN CATHETER IN PLACE AND DRAINING WELL. NOTED WITH LEFT HIP INCISION WITH SOME DRAINAGE. FALL AND SAFETY MEASURES IMPLEMENTED: CALL LIGHT AND TABLE WITHIN REACH, SIDE RAILS UP X 2, BED IN LOWEST LOCKED POSITION. WILL CONTINUE TO MONITOR.
[2022-04-08] MEDS: DOCUSATE SODIUM 100 MG CAPSULE PO SCH ×2 (08:56→16:12)
[2022-04-08] MEDS: MONTELUKAST SODIUM (10MG) 10 MG TABLET PO SCH (08:56)
[2022-04-08] MEDS: LOSARTAN POTASSIUM 25 MG TABLET PO SCH (08:57)
[2022-04-08] MEDS: METOPROLOL SUCCINATE 25 MG TAB.SR.24H PO SCH (08:57)
[2022-04-08] MEDS: CLOPIDOGREL BISULFATE 75 MG TABLET PO SCH (08:57)
[2022-04-08] MEDS: APIXABAN 5 MG TABLET PO SCH ×2 (08:59→16:14)
[2022-04-08] MEDS: PANTOPRAZOLE 40 MG TABLET.DR PO SCH (09:02)
[2022-04-08] MEDS: DISOPYRAMIDE PHOSPHATE 100 MG PO SCH ×2 (09:03→16:12)
[2022-04-08] MEDS: LEFLUNOMIDE 10 MG TABLET PO SCH (09:03)
[2022-04-08] MEDS: CLOTRIMAZOLE 1% 15 GM TUBE TP SCH ×2 (09:16→16:12)
[2022-04-08] MEDS: HYDROMORPHONE INJ 2 MG/ML DISP.SYRIN IV PRN (10:22)
--- NOTE | 2022-04-08 14:40 | NUR ---
RN NOTE/WOUND CARE WOUND CARE PERFORMED AT THIS TIME. OLD DRESSING REMOVED. DRAINAGE OF MODERATE AMOUNT NOTED TO OLD DRESSING. NO ODOR, NO SYMPTOMS OF INFECTION NOTED. PICTURES TAKEN AND RECORDED IN CHART. NEW DRESSING APPLIED.
[2022-04-08 16:00] VITALS: BP 115/58
[2022-04-08] MEDS: ATORVASTATIN 40 MG TABLET PO SCH (17:09)
--- NOTE | 2022-04-08 18:40 | NUR ---
RN CLOSING NOTE PATIENT AWAKE IN BED. A/O X 4. ON ROOM AIR BREATHING EVEN AND NON LABORED. NO SOB OR DISTRESS NOTED. IV ACCESS R HAND #22G, INTACT, PATENT AND FLUSHING WELL. PATIENT HAVE VAUGHAN CATHETER IN PLACE AND DRAINING WELL. KEPT PATIENT CLEAN AND DRY. NO COMPLAINTS OF PAIN. FALL AND SAFETY MEASURES IN PLACE, BED ALARM ON, BED IN LOWEST AND LOCK POSITION, CALL LIGHT AND TABLE WITHIN EASY REACH, SIDE RAILS UP X2. WILL ENDORSE TO NEXT SHIFT RN FOR ROBYN.
--- NOTE | 2022-04-08 19:35 | NUR ---
MS RN OPENING NOTE RECEIVED PATIENT IN BED; AWAKE, ALERT AND ORIENTED X 4. ON ROOM AIR; TOLERATING WELL. BREATHING EVEN AND NONLABORED. NOT IN ANY FORM OF RESPIRATORY OR CARDIAC DISTRESS NOTED. NO C/O PAIN OR DISCOMFORT MADE AT THIS TIME. WITH IV ACCESS ON RIGHT HAND 22G; PATENT, INTACT AND SALINE LOCKED. WITH VAUGHAN CATHETER IN PLACE DRAINING BY GRAVITY TO FRANCY COLOR URINE OUTPUT. ABLE TO MAKE NEEDS KNOWN. SAFETY MEASURES IMPLEMENTED: CALL LIGHT AND TABLE WITHIN REACH, SIDE RAILS UP X 2, BED IN LOWEST LOCKED POSITION. WILL CONTINUE TO MONITOR.
[2022-04-08 20:00] VITALS: BP 120/61
[2022-04-09] MEDS: ALBUTEROL FS 2.5 MG/3 ML VIAL.NEB NEB SCH ×4 (00:43→19:30)
--- NOTE | 2022-04-09 06:00 | NUR ---
RN NOTE OFFERED DRESSING CHANGE FOR HER LEFT HIP. PATIENT REFUSED FOR NOW. "DO IT AFTER BREAKFAST" PT VERBALIZED.
[2022-04-09 06:05] LABS: BASOPHILS % (AUTO) 0.6 % (0.0-2.0); EOSINOPHILS % (AUTO) 4.3 % (0.0-6.0); HEMATOCRIT 29 % (33-45); HEMOGLOBIN 9.1 g/dL (11.5-14.8); LYMPHOCYTES % (AUTO) 12.9 % (20.0-44.0); MEAN CORPUSCULAR HGB CONC 32 g/dl (31.0-36.0); MEAN CORPUSCULAR VOLUME 83 fL (82-100); MONOCYTES # (AUTO) 0.7 K/uL (0.1-1.30); MONOCYTES % (AUTO) 9.3 % (2.0-12.0); NEUTROPHILS # (AUTO) 5.4 K/uL (1.8-8.9); NEUTROPHILS % (AUTO) 72.9 % (43.0-81.0); PLATELET COUNT (AUTO) 273 K/uL (150-450); RED BLOOD CELL COUNT(AUTO) 3.47 MIL/uL (4.0-5.2); WHITE BLOOD COUNT (AUTO) 7.4 K/uL (4.3-11.0)
[2022-04-09 06:22] LABS: CALCIUM, SERUM 8.1 mg/dL (8.5-10.1); CREATININE 0.9 mg/dL (0.6-1.3); POTASSIUM 4.5 mmol/L (3.5-5.1)
--- NOTE | 2022-04-09 06:45 | NUR ---
MS MORALES OPENING NOTE PATIENT IN BED; AWAKE, A/O X 4. STABLE ON ROOM AIR. BREATHING EQUAL AND UNLABORED. IN NO ACUTE DISTRESS. NO C/O PAIN OR DISCOMFORT MADE AT THIS TIME. WITH IV ACCESS ON RIGHT HAND 22G; PATENT, INTACT AND SALINE LOCKED. WITH VAUGHAN CATHETER IN PLACE DRAINING BY GRAVITY TO FRANCY COLOR URINE OUTPUT. ALL NEEDS ATTENDED. SAFETY MEASURES MAINTAINED: CALL LIGHT AND TABLE WITHIN REACH, SIDE RAILS UP X 2, BED IN LOWEST LOCKED POSITION. ENDORSED TO MORNING SHIFT FOR ROBYN. Addendum: 04/09/22 at 0659 by MALIK PONCE RN MS MORALES CLOSING NOTE
[2022-04-09 07:00] VITALS: BP 149/62
--- NOTE | 2022-04-09 07:00 | NUR ---
MS RN OPENING NOTES PATIENT LAYING IN BED, A/O X 4, ABLE TO MAKE NEEDS KNOWN, TOLERATING WELL ON ROOM AIR WITH NO S/S RESPIRATORY DISTRESS. NO COMPLAINTS OF PAIN OR DISCOMFORT AT THIS TIME. VAUGHAN CATHETER IN PLACE DRAINING CLEAR YELLOW URINE TO GRAVITY. LEFT HIP INCISION IN PLACE WITH DRESSING CLEAN, DRY, AND INTACT. R HAND # 22 SL CLEAN, INTACT, AND FLUSHING WELL. SAFETY MEASURES IN PLACE: BED IN LOWEST LOCKED POSITION, SIDE RAILS UP X 2, CALL LIGHT WITHIN REACH. WILL CONTINUE TO MONITOR.
--- NOTE | 2022-04-09 07:03 | NUR ---
MS RN CLOSING NOTE PATIENT IN BED; AWAKE, A/O X 4. STABLE ON ROOM AIR. BREATHING EQUAL AND UNLABORED. IN NO ACUTE DISTRESS. NO C/O PAIN OR DISCOMFORT MADE AT THIS TIME. WITH IV ACCESS ON RIGHT HAND 22G; PATENT, INTACT AND SALINE LOCKED. WITH VAUGHAN CATHETER IN PLACE DRAINING BY GRAVITY TO FRANCY COLOR URINE OUTPUT. ALL NEEDS ATTENDED. SAFETY MEASURES MAINTAINED: CALL LIGHT AND TABLE WITHIN REACH, SIDE RAILS UP X 2, BED IN LOWEST LOCKED POSITION. ENDORSED TO MORNING SHIFT FOR ROBYN.
[2022-04-09] MEDS: BUDESONIDE RESPULE INH 0.5 MG/2 ML AMPUL.NEB NEB SCH ×2 (07:30→19:30)
[2022-04-09] MEDS: LEVOTHYROXINE SODIUM 175 MCG TABLET PO SCH (07:52)
[2022-04-09] MEDS: MONTELUKAST SODIUM (10MG) 10 MG TABLET PO SCH (08:47)
[2022-04-09] MEDS: CLOPIDOGREL BISULFATE 75 MG TABLET PO SCH (08:47)
[2022-04-09] MEDS: METOPROLOL SUCCINATE 25 MG TAB.SR.24H PO SCH (08:47)
[2022-04-09] MEDS: LOSARTAN POTASSIUM 25 MG TABLET PO SCH (08:48)
[2022-04-09] MEDS: CLOTRIMAZOLE 1% 15 GM TUBE TP SCH ×2 (08:48→16:32)
[2022-04-09] MEDS: PANTOPRAZOLE 40 MG TABLET.DR PO SCH (08:48)
[2022-04-09] MEDS: DOCUSATE SODIUM 100 MG CAPSULE PO SCH ×2 (08:48→16:32)
[2022-04-09] MEDS: APIXABAN 5 MG TABLET PO SCH ×2 (08:51→16:36)
[2022-04-09] MEDS: DISOPYRAMIDE PHOSPHATE 100 MG PO SCH ×2 (08:52→16:32)
[2022-04-09] MEDS: LEFLUNOMIDE 10 MG TABLET PO SCH (08:52)
[2022-04-09] MEDS: HYDROMORPHONE INJ 2 MG/ML DISP.SYRIN IV PRN (11:03)
[2022-04-09] MEDS ORDERED: ONDANSETRON HCL 4 MG/5 ML SOLUTION PO PRN (12:30)
[2022-04-09] MEDS ORDERED: POLYETHYLENE GLYCOL 3350 17 GM POWD.PACK PO PRN ×2 (14:00→16:30)
[2022-04-09 16:00] VITALS: BP 126/58
[2022-04-09] MEDS: ATORVASTATIN 40 MG TABLET PO SCH (17:06)
[2022-04-09] MEDS: METOCLOPRAMIDE HCL 10 MG/10 ML UDC PO PRN (17:07)
--- NOTE | 2022-04-09 18:18 | NUR ---
MS RN CLOSING NOTE PATIENT LAYING IN BED, A/O X 4, ABLE TO MAKE NEEDS KNOWN, TOLERATING WELL ON ROOM AIR WITH NO S/S RESPIRATORY DISTRESS. NO COMPLAINTS OF PAIN OR DISCOMFORT AT THIS TIME. VAUGHAN CATHETER IN PLACE DRAINING CLEAR YELLOW URINE TO GRAVITY. LEFT HIP INCISION IN PLACE WITH DRESSING CLEAN, DRY, AND INTACT. R HAND # 22 SL CLEAN, INTACT, AND FLUSHING WELL. SAFETY MEASURES IN PLACE: BED IN LOWEST LOCKED POSITION, SIDE RAILS UP X 2, CALL LIGHT WITHIN REACH. ALL NEEDS MET. TURNED Q2H. WILL ENDORSE TO FIELD HUMAN RESOURCES MANAGER FOR ROBYN.
--- NOTE | 2022-04-09 19:14 | NUR ---
RT NOTE RT called to bedside and pt decannulated. Shiley 8 XLT distal cuffed placed into pt, and airway is patent and secured. adequate spo2 and normal skin color noted. pt shows no signs of resp distress or sob. Ambu bag and emergency spare trach at bedside. pt sx'd for mod amt of blood tinged secretions.
--- NOTE | 2022-04-09 19:35 | NUR ---
MS RN OPENING NOTE RECEIVED PATIENT LAYING IN BED, AWAKE. PT A/O X 4, ABLE TO MAKE NEEDS KNOWN. ON ROOM AIR, TOLERATING RA WELL. NO S/S RESPIRATORY DISTRESS. NO COMPLAINTS OF PAIN OR DISCOMFORT AT THIS TIME. VAUGHAN CATHETER IN PLACE DRAINING CLEAR YELLOW URINE TO GRAVITY. LEFT HIP INCISION IN PLACE WITH DRESSING CLEAN, DRY, AND INTACT. IV ACCESS TO RIGHT HAND # 22 SL CLEAN, INTACT, AND FLUSHING WELL. SAFETY MEASURES IN PLACE: BED IN LOWEST LOCKED POSITION, SIDE RAILS UP X 2, CALL LIGHT WITHIN REACH. WILL CONTINUE TO MONITOR PT.
[2022-04-09 20:00] VITALS: BP 140/71
[2022-04-10] MEDS: ALBUTEROL FS 2.5 MG/3 ML VIAL.NEB NEB SCH ×4 (02:42→19:30)
--- NOTE | 2022-04-10 06:40 | NUR ---
MS RN CLOSING NOTE PATIENT LAYING IN BED, A/O X 4, ABLE TO MAKE NEEDS KNOWN. PT ON ROOM AIR WITH NO S/S RESPIRATORY DISTRESS. NO COMPLAINTS OF PAIN OR DISCOMFORT AT THIS TIME. VAUGHAN CATHETER IN PLACE DRAINING CLEAR YELLOW URINE TO GRAVITY, 600 ML OF URINE DRAINED. DRESSING CHANGED TO LEFT HIP INCISION. R HAND # 22 SL CLEAN, INTACT, AND FLUSHING WELL. SAFETY MEASURES IN PLACE: BED IN LOWEST LOCKED POSITION, SIDE RAILS UP X 2, CALL LIGHT WITHIN REACH. ALL NEEDS MET. TURNED Q2H. WILL ENDORSE TO AM SHIFT NURSE FOR ROBYN.
--- NOTE | 2022-04-10 07:26 | NUR ---
MS RN OPENING NOTE RECEIVED PT AWAKE AND RESTING IN BED. PATIENT IS ALERT AND ORIENTED X4, ABLE TO MAKE NEEDS KNOWN. ON ROOM AIR, TOLERATING WELL. NO SOB NOTED. PT IS NOT IN ANY SIGN OF RESPIRATORY DISTRESS. IV ACCESS IN RIGHT HAND G#22 INTACT AND PATENT. SAFETY MEASURES IN PLACE: BED IN LOWEST AND LOCKED POSITION, SIDE RAILS UP X2, BED ALARM ON, AND CALL LIGHT WITHIN REACH. WILL CONTINUE TO MONITOR PT.
[2022-04-10 08:00] VITALS: BP 188/71
[2022-04-10] MEDS: ENSURE ENLIVE CHOC 237 ML CAN PO SCH ×2 (08:00→17:00)
[2022-04-10] MEDS: LEVOTHYROXINE SODIUM 175 MCG TABLET PO SCH (08:25)
[2022-04-10] MEDS: BUDESONIDE RESPULE INH 0.5 MG/2 ML AMPUL.NEB NEB SCH ×2 (08:30→19:30)
--- NOTE | 2022-04-10 08:30 | NUR ---
RN NOTE PT REFUSED HER ENSURE SUPPLEMENTAL DRINK SCHEDULED AT 0800. EXPLAINED RISK AND BENEFITS, STILL REFUSED.
[2022-04-10] MEDS: MEGESTROL ACETATE SUSP 400 MG/10 ML UDC PO SCH ×2 (08:51→17:14)
[2022-04-10] MEDS: MONTELUKAST SODIUM (10MG) 10 MG TABLET PO SCH (08:52)
[2022-04-10] MEDS: APIXABAN 5 MG TABLET PO SCH ×2 (08:52→17:18)
[2022-04-10] MEDS: METOPROLOL SUCCINATE 25 MG TAB.SR.24H PO SCH (08:53)
[2022-04-10] MEDS: PANTOPRAZOLE 40 MG TABLET.DR PO SCH (08:54)
[2022-04-10] MEDS: LOSARTAN POTASSIUM 25 MG TABLET PO SCH (08:54)
[2022-04-10] MEDS: CLOPIDOGREL BISULFATE 75 MG TABLET PO SCH (08:54)
[2022-04-10] MEDS: DOCUSATE SODIUM 100 MG CAPSULE PO SCH ×2 (08:54→17:14)
[2022-04-10] MEDS: DISOPYRAMIDE PHOSPHATE 100 MG PO SCH ×2 (08:57→17:16)
[2022-04-10] MEDS: LEFLUNOMIDE 10 MG TABLET PO SCH (08:57)
[2022-04-10] MEDS: CLOTRIMAZOLE 1% 15 GM TUBE TP SCH ×2 (08:58→17:16)
[2022-04-10] MEDS: HYDROCODONE/APAP 10/325MG TABLET PO PRN (09:32)
--- NOTE | 2022-04-10 09:34 | NUR ---
RN NOTE PT C/O LEFT HIP PAIN WITH PAIN SCALE LEVEL OF 7/10 AND REQUESTED FOR NORCO. NORCO 10/325 MG 1 TAB GIVEN ORDERED PRN Q4H FOR PAIN. WILL MONITOR AND REASSESS PT.
[2022-04-10 16:08] VITALS: BP 114/73
[2022-04-10] MEDS: ATORVASTATIN 40 MG TABLET PO SCH (17:14)
--- NOTE | 2022-04-10 18:41 | NUR ---
MS RN CLOSING NOTE PT AWAKE AND RESTING IN BED. PATIENT IS ALERT AND ORIENTED X4, ABLE TO MAKE NEEDS KNOWN. ON ROOM AIR, TOLERATING WELL. NO SOB NOTED. PT IS NOT IN ANY SIGN OF RESPIRATORY DISTRESS. IV ACCESS IN RIGHT HAND G#22 INTACT AND PATENT. ALL NEEDS ATTENDED. KEPT CLEAN AND COMFORTABLE AT ALL TIMES. SAFETY MEASURES IN PLACE: BED IN LOWEST AND LOCKED POSITION, SIDE RAILS UP X2, BED ALARM ON, AND CALL LIGHT WITHIN REACH. WILL ENDORSE TO GIS MAPPING TECHNICIAN NURSE FOR ROBYN.
--- NOTE | 2022-04-10 19:15 | NUR ---
MS RN OPENING NOTE PT IS AWAKE AND EATING HER SNACKS IN BED. PATIENT IS ALERT AND ORIENTED X4. SHE IS ABLE TO MAKE HER NEEDS KNOWN. PATIENT IS ON ROOM AIR, TOLERATING WELL. NO S/S OF SOB OR DISTRESS. IV ACCESS IS ON RIGHT HAND,#22G, FLUSHED WITH 10 CC NS, INTACT AND PATENT. SAFETY MEASURES ARE IN PLACED: BED IN LOWEST AND LOCKED POSITION, SIDE RAILS UP X2, BED ALARM ON, AND CALL LIGHT WITHIN REACH. WILL CONTINUE MONITORING THE PATIENT AND PROVIDE THE CARE SHE NEEDS. .
[2022-04-10 20:00] VITALS: BP 150/74
[2022-04-11] MEDS: ALBUTEROL FS 2.5 MG/3 ML VIAL.NEB NEB SCH ×4 (01:00→19:30)
--- NOTE | 2022-04-11 06:53 | NUR ---
MS RN CLOSING NOTE PATIENT IS SLEEPING IN BED, EASILY BEING AROUSED. PATIENT IS ON ROOM AIR, TOLERATED WELL. NO S/S OF SOB OR DISTRESS. IV ACCESS IS ON RIGHT HAND, #22G; FLUSHED WITH 10 CC NS, INTACT AND PATENT. VAUGHAN CATHETER IS DRAINING CLEAR, DARK YELLOW COLOR URINE FREELY BY GRAVITY. SAFETY MEASURES ARE IN PLACED: BED IN LOWEST AND LOCKED POSITION, SIDE RAILS UP X 2, BED ALARM IS ON, CALL LIGHT AND TABLE ARE WITHIN REACH. WILL ENDORSE NEXT SHIFT FOR CONTINUE PATIENT CARE.
[2022-04-11] MEDS: BUDESONIDE RESPULE INH 0.5 MG/2 ML AMPUL.NEB NEB SCH ×2 (07:30→19:30)
--- NOTE | 2022-04-11 07:47 | NUR ---
RN Opening Report Patient AOx4 able to express her own concerns. Patient made aware of plan of care and verbalized agreement. States no need at the moment and no discomfort. No signs of distress or discomfort, no sign of IV infiltration, no respiratory distress. All safety precautions taken, call light and table within reach, bed at lowest position. Will continue to round and monitor throughout shift.
[2022-04-11 08:00] VITALS: BP 133/77
[2022-04-11] MEDS: LEVOTHYROXINE SODIUM 175 MCG TABLET PO SCH (08:14)
[2022-04-11] MEDS: LOSARTAN POTASSIUM 25 MG TABLET PO SCH (08:15)
[2022-04-11] MEDS: CLOPIDOGREL BISULFATE 75 MG TABLET PO SCH (08:15)
[2022-04-11] MEDS: MONTELUKAST SODIUM (10MG) 10 MG TABLET PO SCH (08:15)
[2022-04-11] MEDS: METOPROLOL SUCCINATE 25 MG TAB.SR.24H PO SCH (08:15)
[2022-04-11] MEDS: PANTOPRAZOLE 40 MG TABLET.DR PO SCH (08:16)
[2022-04-11] MEDS: MEGESTROL ACETATE SUSP 400 MG/10 ML UDC PO SCH ×2 (08:16→16:52)
[2022-04-11] MEDS: DOCUSATE SODIUM 100 MG CAPSULE PO SCH ×2 (08:16→16:52)
[2022-04-11] MEDS: APIXABAN 5 MG TABLET PO SCH ×2 (08:17→17:02)
[2022-04-11] MEDS: DISOPYRAMIDE PHOSPHATE 100 MG PO SCH ×2 (08:51→16:52)
[2022-04-11] MEDS: LEFLUNOMIDE 10 MG TABLET PO SCH (08:51)
[2022-04-11] MEDS: CLOTRIMAZOLE 1% 15 GM TUBE TP SCH ×2 (08:52→16:52)
[2022-04-11] MEDS: ENSURE ENLIVE CHOC 237 ML CAN PO SCH ×2 (08:53→16:52)
[2022-04-11] MEDS: HYDROCODONE/APAP 10/325MG TABLET PO PRN (09:29)
[2022-04-11 16:00] VITALS: BP 125/74
[2022-04-11] MEDS: ATORVASTATIN 40 MG TABLET PO SCH (17:01)
--- NOTE | 2022-04-11 18:20 | NUR ---
RN Closing Note Patient AO x4 able to express her own concerns. Patient with no signs of distress or discomfort. Remained safe throughout shift. Patient made aware of plan of care and pending authorization to facility. Care provided as needed, needs attended to, and medications administered as prescribes. All safety precautions taken, call light and table within reach, bed at lowest position. Will endorse to night nurse for continuity of care.
[2022-04-11 20:00] VITALS: BP 134/63
[2022-04-11] MEDS ORDERED: PANTOPRAZOLE 40 MG TABLET.DR PO ONE (23:00)
[2022-04-11] MEDS: diphenhydrAMINE HCL 25 MG CAPSULE PO PRN (23:07)
--- NOTE | 2022-04-11 23:33 | NUR ---
RN OPENING NOTES: RECEIVED PATIENT AWAKE IN BED, ACCOMPANIED BY FAMILY, BED IN LOW POSITION CALL LIGHTS WITHIN REACH, NO COMPLAIN OF PAIN AND DISCOMFORT AT THIS TIME, ON ROOM AIR SATURATING WELL, PATIENT IS A/OX4 ABLE TO MAKE NEEDS KNOWN, ON VAUGHAN CATHETER WITH 50CC URINE OUTPUT, IV LINE AT RIGHT HAND #20SL, PATIENT KEPT CLEAN AND DRY ALL NEEDS MET WILL CONTINUE TO MONITOR.
[2022-04-12] MEDS: HYDROCODONE/APAP 10/325MG TABLET PO PRN ×2 (00:54→11:09)
[2022-04-12] MEDS: ALBUTEROL FS 2.5 MG/3 ML VIAL.NEB NEB SCH ×5 (00:55→19:37)
--- NOTE | 2022-04-12 06:43 | NUR ---
MS RN CLOSING NOTES: PATIENT SLEEP IN BED COMFORTABLY AROUSABLE TO VERBAL STIMULI, BED IN LOW POSITION CALL LIGHTS WITHIN REACH, NO COMPLAIN OF PAIN AND DISCOMFORT AT THIS TIME, ON VAUGHAN CATHETER-400CC URINE OUTPUT, PATIENT IS A/OX4 ABLE TO MAKE NEEDS KNOWN, KEPT CLEAN AND DRY ALL NEEDS MET ENDORSE TO INCOMING SHIFT.
[2022-04-12] MEDS: BUDESONIDE RESPULE INH 0.5 MG/2 ML AMPUL.NEB NEB SCH ×3 (07:57→19:37)
[2022-04-12 08:00] VITALS: BP 145/65
[2022-04-12] MEDS: ENSURE ENLIVE CHOC 237 ML CAN PO SCH ×2 (08:13→17:00)
[2022-04-12] MEDS: LEVOTHYROXINE SODIUM 175 MCG TABLET PO SCH (08:25)
[2022-04-12] MEDS: DISOPYRAMIDE PHOSPHATE 100 MG PO SCH ×2 (09:41→20:07)
[2022-04-12] MEDS: LEFLUNOMIDE 10 MG TABLET PO SCH (09:41)
[2022-04-12] MEDS: MEGESTROL ACETATE SUSP 400 MG/10 ML UDC PO SCH ×2 (09:42→20:05)
[2022-04-12] MEDS: CLOPIDOGREL BISULFATE 75 MG TABLET PO SCH (09:42)
[2022-04-12] MEDS: PANTOPRAZOLE 40 MG TABLET.DR PO SCH (09:42)
[2022-04-12] MEDS: MONTELUKAST SODIUM (10MG) 10 MG TABLET PO SCH (09:43)
[2022-04-12] MEDS: DOCUSATE SODIUM 100 MG CAPSULE PO SCH ×2 (09:43→20:06)
[2022-04-12] MEDS: LOSARTAN POTASSIUM 25 MG TABLET PO SCH ×3 (09:43→09:49)
[2022-04-12] MEDS: METOPROLOL SUCCINATE 25 MG TAB.SR.24H PO SCH ×2 (09:44→09:49)
[2022-04-12] MEDS: APIXABAN 5 MG TABLET PO SCH ×2 (09:45→20:06)
[2022-04-12] MEDS: CLOTRIMAZOLE 1% 15 GM TUBE TP SCH ×2 (09:45→17:00)
[2022-04-12 16:11] VITALS: BP 117/54
[2022-04-12 19:30] LABS: ALBUMIN 2.4 g/dL (3.4-5.0); BILIRUBIN,TOTAL 0.8 mg/dL (0.2-1.0); CALCIUM, SERUM 8.1 mg/dL (8.5-10.1); CREATININE 1.1 mg/dL (0.6-1.3); POTASSIUM 4.1 mmol/L (3.5-5.1); TOTAL PROTEIN, SERUM 5.6 g/dL (6.4-8.2)
--- NOTE | 2022-04-12 19:30 | NUR ---
MS RN OPENING NOTE RECEIVED PATIENT SITTING IN BED, ALERT AND ORIENTED X4. ABLE TO MAKE NEEDS KNOWN. AFEBRILE AND NOT IN ANY FORM OF ACUTE DISTRESS. BREATHING EVEN AND NON LABORED. NO C/O PAIN OR DISCOMFORT AT THIS TIME. LUNG SOUNDS CLEAR ON AUSCULTATION. WITH IV ACCESS ON R HAND 20G-SL. WITH INTACT VAUGHAN CATHETER DRAINING WELL WITH YELLOW URINE OUTPUT. SAFETY MEASURES IN PLACE. KEPT BED IN LOCKED AND IN LOW POSITION. SIDE RAILS UPS X2. ADVISED TO USE THE CALL LIGHT WHEN IN NEED OF ASSISTANCE.
--- NOTE | 2022-04-12 19:40 | NUR ---
RT NOTE PT REFUSED TX AT THIS TIME. RN AMANDA @ BEDSIDE. NO SOB NOTED. PT ON ROOM AIR.
[2022-04-12 20:00] VITALS: BP 116/64
[2022-04-12 20:02] LABS: BASOPHILS % (AUTO) 0.5 % (0.0-2.0); EOSINOPHILS % (AUTO) 2.9 % (0.0-6.0); HEMATOCRIT 28 % (33-45); HEMOGLOBIN 9.2 g/dL (11.5-14.8); LYMPHOCYTES # (AUTO) 1.5 K/uL (0.8-4.8); LYMPHOCYTES % (AUTO) 18.3 % (20.0-44.0); MEAN CORPUSCULAR HGB CONC 32 g/dl (31.0-36.0); MEAN CORPUSCULAR VOLUME 82 fL (82-100); MONOCYTES # (AUTO) 0.5 K/uL (0.1-1.30); MONOCYTES % (AUTO) 6.2 % (2.0-12.0); NEUTROPHILS # (AUTO) 6.1 K/uL (1.8-8.9); NEUTROPHILS % (AUTO) 72.1 % (43.0-81.0); PLATELET COUNT (AUTO) 355 K/uL (150-450); RED BLOOD CELL COUNT(AUTO) 3.46 MIL/uL (4.0-5.2); WHITE BLOOD COUNT (AUTO) 8.5 K/uL (4.3-11.0)
[2022-04-12] MEDS: ATORVASTATIN 40 MG TABLET PO SCH (20:06)
--- NOTE | 2022-04-12 20:14 | NUR ---
MS RN CLOSING NOTES: PATIENT SLEEP IN BED. BED IN LOW POSITION CALL LIGHTS WITHIN REACH, NO COMPLAIN OF PAIN AND DISCOMFORT AT THIS TIME. PATIENT IS A/OX4 ABLE TO MAKE NEEDS KNOWN, KEPT CLEAN AND DRY ALL NEEDS MET ENDORSE TO INCOMING SHIFT.
[2022-04-12] MEDS: diphenhydrAMINE HCL 25 MG CAPSULE PO PRN (22:48)
[2022-04-13] MEDS: ALBUTEROL FS 2.5 MG/3 ML VIAL.NEB NEB SCH ×4 (01:30→19:30)
--- NOTE | 2022-04-13 06:30 | NUR ---
MS RN CLOSING NOTE PATIENT IN BED, WITH HOB ELEVATED, ASLEEP BUT EASY TO AROUSE AND RESPONSIVE. ABLE TO MAKE NEEDS KNOWN. AFEBRILE AND NOT IN ANY FORM OF ACUTE DISTRESS. BREATHING EVEN AND NON LABORED. NO C/O PAIN OR DISCOMFORT THROUGHOUT THE SHIFT. LUNG SOUNDS CLEAR ON AUSCULTATION. WITH IV ACCESS ON R HAND 20G-SL. WITH INTACT VAUGHAN CATHETER DRAINING WELL WITH YELLOW URINE OUTPUT, NO HEMATURIA OR SEDIMENTS NOTED WITH APPROX. 300CC OUTPUT. MEDICATED ORDERED. SAFETY MEASURES IN PLACE. KEPT BED IN LOCKED AND IN LOW POSITION. SIDE RAILS UPS X2. ADVISED TO USE THE CALL LIGHT WHEN IN NEED OF ASSISTANCE. ALL NURSING NEEDS ATTENDED. ENDORSED TO INCOMING SHIFT FOR CONTINUITY OF CARE.
--- NOTE | 2022-04-13 07:30 | NUR ---
MS RN OPENING NOTE Received patient from hot die picker nurse; Patient is alert and oriented x 4, elevated head of bed; on room air, breathing evenly and with no distress noted; With IV access on the right hand G20 Saline Lock, intact and running; With booth catheter inserted, draining well with yellow colored urine; Administered medications as ordered; Needs attended; Safety measures done, bed in low position, locked, side rails up x 3, call light within reach. Will continue to monitor throughout shift.
[2022-04-13] MEDS: LEVOTHYROXINE SODIUM 175 MCG TABLET PO SCH (07:49)
[2022-04-13 08:00] VITALS: BP 150/80
[2022-04-13] MEDS: BUDESONIDE RESPULE INH 0.5 MG/2 ML AMPUL.NEB NEB SCH ×2 (08:13→19:30)
[2022-04-13] MEDS: ENSURE ENLIVE CHOC 237 ML CAN PO SCH ×2 (08:30→16:46)
[2022-04-13] MEDS: MEGESTROL ACETATE SUSP 400 MG/10 ML UDC PO SCH ×3 (08:49→17:00)
[2022-04-13] MEDS: DOCUSATE SODIUM 100 MG CAPSULE PO SCH ×3 (08:50→17:00)
[2022-04-13] MEDS: PANTOPRAZOLE 40 MG TABLET.DR PO SCH (08:57)
[2022-04-13] MEDS: MONTELUKAST SODIUM (10MG) 10 MG TABLET PO SCH (08:58)
[2022-04-13] MEDS: METOPROLOL SUCCINATE 25 MG TAB.SR.24H PO SCH (08:58)
[2022-04-13] MEDS: CLOPIDOGREL BISULFATE 75 MG TABLET PO SCH (08:58)
[2022-04-13] MEDS: LOSARTAN POTASSIUM 25 MG TABLET PO SCH (08:58)
[2022-04-13] MEDS: DISOPYRAMIDE PHOSPHATE 100 MG PO SCH ×3 (08:59→17:00)
[2022-04-13] MEDS: LEFLUNOMIDE 10 MG TABLET PO SCH (08:59)
[2022-04-13] MEDS: APIXABAN 5 MG TABLET PO SCH ×3 (09:01→17:00)
[2022-04-13] MEDS: CLOTRIMAZOLE 1% 15 GM TUBE TP SCH ×2 (09:25→16:46)
--- NOTE | 2022-04-13 10:00 | NUR ---
RN NOTE Patient complained of pain and opt to take pain medication prior to having PT; Administered [place] 5-325mg at 0855H; Reassessed patient at 0925H and verbalized feeling better.
--- NOTE | 2022-04-13 12:43 | NUR ---
RN OPENING NOTE Received patient from production supervisor off shift nurse; Patient is alert and oriented x 4, elevated head of bed; on room air, breathing evenly and with no distress noted; With IV access on the right hand G20 Saline Lock, intact and running; With booth catheter inserted, draining well with yellow colored urine; Administered medications as ordered; Needs attended; Safety measures done, bed in low position, locked, side rails up x 3, call light within reach. Will continue to monitor throughout shift. Addendum: 04/13/22 at 1327 by WALT FAJARDO RN ERROR
[2022-04-13 16:00] VITALS: BP 109/70
[2022-04-13] MEDS: METOCLOPRAMIDE HCL 10 MG/10 ML UDC PO PRN (16:45)
[2022-04-13] MEDS ORDERED: CALCIUM CARBONATE 500 MG TAB.CHEW PO PRN (18:00)
[2022-04-13] MEDS: ATORVASTATIN 40 MG TABLET PO SCH (18:00)
--- NOTE | 2022-04-13 18:16 | NUR ---
RN NOTE Patient had 2 episodes of vomiting. Administered Metoclopramide suspension 10ml as PRN order. Patient verbalized wanting to take Tums to relieve her nausea and vomiting. Informed Dr. Koch about the request to take Tums, doctor agreed. Patient refused to take her due medications due to nauseous feeling.
--- NOTE | 2022-04-13 19:20 | NUR ---
MS RN CLOSING NOTE Patient is alert and oriented x 4, elevated head of bed; on room air, breathing evenly and with no distress noted; With IV access on the right hand G20 Saline Lock, intact and running; With booth catheter inserted, draining well with yellow colored urine; Administered medications as ordered; Had episodes of vomiting but currently feeling a little bit better; Needs attended; Safety measures done, bed in low position, locked, side rails up x 3, call light within reach; Will endorse to night shift manager nurse for continuity of care.
--- NOTE | 2022-04-13 19:21 | NUR ---
MS RN OPENING NOTE RECEIVED PATIENT SITTING IN BED, ALERT AND ORIENTED X4. ABLE TO COMMUNICATE NEEDS WITH THE STAFFS. AFEBRILE AND NOT IN ANY FORM OF ACUTE DISTRESS. BREATHING EVEN AND NON LABORED. NO C/O PAIN OR DISCOMFORT AT THIS TIME. LUNG SOUNDS CLEAR ON AUSCULTATION. WITH IV ACCESS ON R HAND 20G-SL. WITH INTACT VAUGHAN CATHETER DRAINING WELL WITH YELLOW URINE OUTPUT. SAFETY MEASURES IN PLACE. KEPT BED IN LOCKED AND IN LOW POSITION. SIDE RAILS UPS X2. ADVISED TO USE THE CALL LIGHT WHEN IN NEED OF ASSISTANCE.
[2022-04-13 20:00] VITALS: BP 115/62
--- NOTE | 2022-04-13 20:18 | NUR ---
RT NOTE PT REFUSED TX AT THIS TIME. PT ON ROOM AIR. NO SOB NOTED. RN AMANDA NOTIFIED AND IS AWARE.
[2022-04-14] MEDS: ALBUTEROL FS 2.5 MG/3 ML VIAL.NEB NEB SCH ×3 (00:30→13:30)
[2022-04-14] MEDS: diphenhydrAMINE HCL 25 MG CAPSULE PO PRN (02:20)
--- NOTE | 2022-04-14 06:30 | NUR ---
MS RN CLOSING NOTE PATIENT IN BED, ASLEEP BUT EASY TO AROUSE AND RESPONSIVE. ABLE TO COMMUNICATE NEEDS WITH THE STAFFS. AFEBRILE AND NOT IN ANY FORM OF ACUTE DISTRESS. BREATHING EVEN AND NON LABORED. NO C/O PAIN OR DISCOMFORT THROUGHOUT THE SHIFT. LUNG SOUNDS CLEAR ON AUSCULTATION. WITH IV ACCESS ON R HAND 20G-SL. WITH INTACT VAUGHAN CATHETER DRAINING WELL WITH YELLOW URINE OUTPUT, NO HEMATURIA OR SEDIMENTS NOTED. MEDICATED ORDERED. SAFETY MEASURES IN PLACE. KEPT BED IN LOCKED AND IN LOW POSITION. SIDE RAILS UPS X2. ADVISED TO USE THE CALL LIGHT WHEN IN NEED OF ASSISTANCE. ALL NURSING NEEDS ATTENDED. ENDORSED TO INCOMING SHIFT FOR CONTINUITY OF CARE.
--- NOTE | 2022-04-14 07:40 | NUR ---
MS RN OPENING NOTE Received patient from night baker nurse; Patient is alert and oriented x 4, elevated head of bed; on room air, breathing evenly and with no distress noted; With IV access on the right hand G20 Saline Lock, intact and running; With booth catheter inserted, draining well with yellow colored urine; Safety measures done, bed in low position, locked, side rails up x 3, call light within reach. Will continue to monitor throughout shift.
[2022-04-14] MEDS: BUDESONIDE RESPULE INH 0.5 MG/2 ML AMPUL.NEB NEB SCH (07:43)
[2022-04-14] MEDS: LEVOTHYROXINE SODIUM 175 MCG TABLET PO SCH (07:44)
[2022-04-14] MEDS: ENSURE ENLIVE CHOC 237 ML CAN PO SCH (07:51)
[2022-04-14] MEDS: MEGESTROL ACETATE SUSP 400 MG/10 ML UDC PO SCH (08:24)
[2022-04-14] MEDS: DOCUSATE SODIUM 100 MG CAPSULE PO SCH (08:25)
[2022-04-14] MEDS: PANTOPRAZOLE 40 MG TABLET.DR PO SCH (08:25)
[2022-04-14] MEDS: METOPROLOL SUCCINATE 25 MG TAB.SR.24H PO SCH (08:25)
[2022-04-14 08:26] VITALS: BP 116/60
[2022-04-14] MEDS: LOSARTAN POTASSIUM 25 MG TABLET PO SCH (08:26)
[2022-04-14] MEDS: CLOPIDOGREL BISULFATE 75 MG TABLET PO SCH (08:26)
[2022-04-14] MEDS: MONTELUKAST SODIUM (10MG) 10 MG TABLET PO SCH (08:26)
[2022-04-14] MEDS: DISOPYRAMIDE PHOSPHATE 100 MG PO SCH (08:35)
[2022-04-14] MEDS: CLOTRIMAZOLE 1% 15 GM TUBE TP SCH (08:45)
[2022-04-14] MEDS: LEFLUNOMIDE 10 MG TABLET PO SCH (09:00)
[2022-04-14] MEDS: APIXABAN 5 MG TABLET PO SCH (09:13)
--- NOTE | 2022-04-14 14:53 | NUR ---
MS GED TUTOR NOTE Received discharge order. Patient is alert and oriented x 4, able to make needs known. Breathing evenly on room air and no distress noted. Given instructions verbally and in written form. Patient belongings accounted for and form signed by patient; Loss one pair of earring and verbalized the possibility of losing the earring during the fall prior to admission. Evans catheter and IV access removed, both intact. Called and report given earlier to [facility]. Exit folder handed to EMT. Patient left in stable condition via [place] with 2 industrial chemicals supervisor and grandson.
== END 2022-04-14 14:45 | DRG 481 ==
LOC: ER 23:21 → TELE 04-01 01:55 → MED 04-01 04:06
PROVIDERS: ADMIT Student in an Organized Health Care Education/Training Program; ATTEND Registered Nurse
PROC: 0QS706Z Reposition Left Upper Femur with Intramedullary Internal Fixation Device, Open Approach (ICD-10-PCS; principal; 2022-04-02)
PROC: 30233N1 Transfusion of Nonautologous Red Blood Cells into Peripheral Vein, Percutaneous Approach (ICD-10-PCS; 2022-04-03)
DX: S72.142A Displaced intertrochanteric fracture of left femur, initial encounter for closed fracture (principal); D62 Acute posthemorrhagic anemia; I25.10 Atherosclerotic heart disease of native coronary artery without angina pectoris; W01.0XXA Fall on same level from slipping, tripping and stumbling without subsequent striking against object, initial encounter; Y92.481 Parking lot as the place of occurrence of the external cause; Z95.5 Presence of coronary angioplasty implant and graft; Z95.2 Presence of prosthetic heart valve; M85.80 Other specified disorders of bone density and structure, unspecified site; M54.32 Sciatica, left side; M54.31 Sciatica, right side; R26.89 Other abnormalities of gait and mobility; Z20.822 Contact with and (suspected) exposure to COVID-19
CPT/HCPCS: 36415; 71045-TC; 73020; 73502; 80048-TC; 80053-TC; 83605-TC; 83735-TC; 84100-TC; 84443-TC; 85025-TC; 85027-TC; 85730-TC; 86850-TC; 87081-TC; 93307-TC; 94799-TC; 97110-TC; 97112-TC; 97116-TC; 97530-TC; A6209; C1713; C9113; C9803; G0378; J0330; J0690; J1100; J1170; J1650; J1885; J2270; J2405; J2704; J2765; J3490; J7030; J7050; J7060; J8597; P9016; Q0162; Q0163